=== PATIENT | female | born 1985 | race Caucasian/White ===

== ENCOUNTER → 2019-10-14 | Day surgery (SDC) | payer BC ==
[~2019-10-14] MED LIST: FENTANYL CITRATE/PF 100MCG/2 ML INJ ONE; GLUCAGON FOR INJ 1 MG VIAL ONE; HYOSCYAMINE 0.125 MG TAB ONE; MIDAZOLAM HCL 2 MG/2 ML VIAL ONE; NUVARING VAGIN1 EACH VG; PROPOFOL IV EMULSION 10 MG/ML 50 ML VIAL ONE
[2019-10-14 09:40] VITALS: BP 104/98
[2019-10-14 09:55] LABS: WBC,FECAL (FECAL LACTOFERRIN) NEGATIVE (NEGATIVE)
--- NOTE | 2019-10-14 10:31 | Operative Report ---
DATE OF PROCEDURE: 10/14/2019 SURGEON: Nicolas Silva MD PROCEDURES: EGD with biopsies and colonoscopy with polypectomy and biopsies. INDICATIONS FOR EGD: Upper abdominal pain. INDICATIONS FOR COLONOSCOPY: History of rectal bleeding, alternating constipation, and diarrhea. MEDICATIONS: The patient was done under MAC, please see anesthesiologist's note. PROCEDURE IN DETAIL: With the patient in left lateral decubitus position, a flexible fiberoptic Olympus gastroscope was introduced into the esophagus under direct visualization without any difficulty. There was some patchy erythema noted in distal esophagus. The scope was then advanced with ease into the stomach. Mucosa overlying the antrum and the body revealed some patchy erythema and [id number] edema. Biopsies were obtained and sent to stain for H. pylori. The pylorus was of normal contour and shape, it was intubated with ease and the scope was advanced all the way to the second portion of the duodenum. Biopsies were obtained from the proximal second portion and duodenal bulb to rule out sprue. The scope was then withdrawn back into the stomach and retroflexed, mucosa overlying the fundus and cardia appeared to be within normal limits. The scope was then straightened out, it was subsequently withdrawn. The patient tolerated the procedure well. IMPRESSION: 1. Distal esophagitis, mild. 2. Gastritis, biopsied, biopsies sent to stain for H. pylori. 3. Rule out sprue. PLAN: 1. Follow up histology. 2. Initiate Protonix 40 mg one p.o. q.a.m. a.c. DESCRIPTION OF PROCEDURE: The patient was then turned around after adequate lubrication of the anal canal, a flexible fiberoptic Olympus colonoscope was inserted into the rectum with ease and advanced all the way to the cecum. Mucosa overlying the cecum appeared to be within normal limits. The ileocecal valve was intubated and the scope was advanced into the terminal ileum. Biopsies were obtained. The scope was then withdrawn back into the colon; it was then withdrawn slowly and mucosa overlying the ascending, the transverse appeared to be within normal limits. Mild patchy inflammatory changes were noted in the left colon. Random biopsies were obtained. Two minute hyperplastic-appearing polyps were hot biopsied from the sigmoid colon. The scope was then retroflexed into the distal rectum and small internal hemorrhoids were noted, none of which was actively bleeding. The scope was then straightened out, it was subsequently withdrawn after securing an adequate stool specimen, that was sent for the appropriate stool studies. The patient tolerated the procedure well. IMPRESSION: 1. Mild patchy left-sided colitis. 2. Sigmoid colon polyps, minute, hyperplastic appearing, hot biopsied. 3. Internal hemorrhoids, none actively bleeding. PLAN: 1. Follow up histology. 2. Follow up stool studies. 3. Initiate Bentyl 10 mg one p.o. t.i.d. 4. VSL #3 one p.o. daily. Nicolas Silva MD [facility] [place]/MOD[facility] /[id number] cc: DR. SUKH CRANE
[2019-10-14 15:02] LABS: C DIFFICILE TOXIN A&B AMP PROB NEGATIVE (NEGATIVE)
== END | disposition home or self-care (01) ==
LOC: OR 05:50
PROVIDERS: ATTEND Internal Medicine Gastroenterology
DX: K29.50 Unspecified chronic gastritis without bleeding (principal); K63.5 Polyp of colon; K51.50 Left sided colitis without complications; K59.00 Constipation, unspecified; K20.9 Esophagitis, unspecified; K64.8 Other hemorrhoids
CPT/HCPCS: 43239; 45380; 45384; 81025; 83630; 83993; 87045; 87177; 87328; 87493; J1610; J2250; J2704; J3010